=== PATIENT | female | born 1970 | race Caucasian/White ===

== ENCOUNTER 2017-05-20 18:50 | Inpatient (IN) | payer BC, OTHER ==
--- NOTE | ~2017-05-20 | PN ---
Unit #: [id number] #: [id number] Patient: ANTONIO VARMA [id number] [facility] [address] [place] [address] [id number] MR#: [id number] NAME: ANTONIO VARMA ROOM: P212 Age: 46 Sex: F Admission Date: 05/20/2017 : 1970 Attending Physician: Quan Guerrero M.D. Admitting Physician: Quan Guerrero M.D. Primary Care Physician: Primary Care Physician Jayashree AVILA PROGRESS NOTES DATE 05/24/2017 DISCUSSION The patient complains of severe alcohol craving when seen today. We will go ahead and start Campral 66 mg 3 times a day in hopes of addressing this symptom. The patient remains uncertain as to whether she wants to pursue residential treatment or an outpatient treatment program. Discharge should take place tomorrow. Dictated by... Quan Guerrero M.D. CB/bztheo TD: 05/24/2017 14:08 JOB #: [id number] [facility] PROGRESS NOTES Page 1 of 1 X Quan Guerrero MD PROGRESS NOTE
--- NOTE | ~2017-05-20 | HP ---
Unit #: [id number] #: [id number] Patient: ANTONIO VARMA [id number] [place] [address] [id number] I MR#: [id number] NAME: ANTONIO VARMA ROOM: P212 Age: 46 Sex: F Admission Date: 05/20/2017 : 1970 Attending Physician: Quan Guerrero M.D. Admitting Physician: Quan Guerrero M.D. Primary Care Physician: Primary Care Physician No HISTORY AND PHYSICAL HISTORY OF PRESENT ILLNESS Antonio is a 46 year old admitted to [address] [place] [address] because of her continued abuse of alcohol. PAST MEDICAL HISTORY 1. Long history of alcohol abuse. 2. History of opioid abuse. 3. Obesity. PAST SURGICAL HISTORY 1. Hysterectomy. 2. Knee. 3. Laparoscopic oophorectomy. ALLERGIES No known drug allergies. SOCIAL HISTORY She does not smoke. Drinks at least a fifth of liquor on a daily basis and admits to using up to 100 mg of Lortab on a daily basis. FAMILY HISTORY Medically noncontributory. REVIEW OF SYSTEMS CONSTITUTIONAL: No fever or chills. HEENT: Denies any sore throat, ear pain or runny nose. CARDIOVASCULAR: Denies chest pain, irregular heart rhythm or palpitations. CHEST: Denies shortness of breath or cough. No hemoptysis. GASTROINTESTINAL: Denies nausea, vomiting, diarrhea or chronic constipation. ENDOCRINE: Denies history of increased thirst or urination. No recent significant weight loss or gain. GENITOURINARY: Denies dysuria, frequency, or hematuria. SKIN: Denies any rashes. HEMATOLOGIC: Denies history of increased bleeding or bruising. MUSCULOSKELETAL: Denies any hot, swollen joints. No generalized muscle pain. NEUROLOGIC: Denies problems with vision or speech. No frequent, severe headaches. No numbness, tingling or weakness in any extremities. Denies loss of bladder or bowel control. CURRENT MEDICATIONS Unit #: [id number] #: [id number] Patient: ANTONIO VARMA 1. Detox protocol. 2. Celexa 20 mg daily. PHYSICAL EXAMINATION GENERAL: Alert, obese, in no apparent distress. VITAL SIGNS: Blood pressure 166/100, heart rate 94, respirations 16, temperature 98.6. WEIGHT: 160. HEIGHT: 5 feet 4 inches. SKIN: Warm and dry without rash or lesion. HEENT: Normocephalic. TMs not viewed. Oral and nasal passages clear. Conjunctivae clear. PERRLA. EOMs intact. NECK: Supple without lymphadenopathy or thyromegaly. HEART: Regular rate and rhythm without murmur. LUNGS: Clear. ABDOMEN: Soft, nontender. : Not done. EXTREMITIES: No evidence of cyanosis, clubbing or edema. Moves all without focal deficit. NEUROLOGICAL: Grossly within normal limits. Cranial Nerves: II: Visual bardales are intact. III, IV AND : Extraocular movements are intact. Pupils are equal, round and reactive to light. V: Facial sensation is grossly normal. VII: Facial movements and expression are normal. VIII: Auditory acuity grossly intact. IX, X: Uvula is midline. Phonation is normal. XI: Patient shrugs shoulders and turns head normally. XII: Tongue protrudes in the midline. Sensory and Motor Function: Sensory and motor sensation is grossly normal. Motor: moves all extremities well. Coordination: Gait is normal. Deep Tendon Reflexes: Intact. IMPRESSION Psychiatric admission. RECOMMENDATIONS PSYCHIATRIC: Per psychiatrist. MEDICAL: See no contraindication to participate in facility's activities. MEDICAL PROGNOSIS Good. MEDICAL CONDITION Stable. Dictated by... Radha Morris PMalikaAMalika-Ligia. for Vikram Trevino/bassam TD: 05/21/2017 22:57 JOB #: [id number] Unit #: [id number] #: [id number] Patient: ANTONIO VARMA HISTORY AND PHYSICAL Page 1 of 1 X Radha Morris HISTORY AND PHYSICAL
--- NOTE | ~2017-05-20 | PN ---
Unit #: [id number] #: [id number] Patient: ANTONIO VARMA [id number] [facility] [address] [place] [address] [id number] I MR#: [id number] NAME: ANTONIO VARMA ROOM: [facility] Age: 46 Sex: F Admission Date: 05/20/2017 : 1970 Attending Physician: Quan Guerrero M.D. Admitting Physician: Quan Guerrero M.D. Primary Care Physician: Primary Care Physician Jayashree AVILA PROGRESS NOTES DATE 05/22/2017 DISCUSSION The patient is abed today and is gently but firmly confronted by this physician regarding her failure to attend an on-unit therapeutic activity. The patient is complaining of ongoing symptoms of nausea and diarrhea. I have encouraged her to avail herself of prescribed p.r.n.'s. She continues to press interest in residential chemical dependence treatment following completion of detox. Dictated by... Quan Guerrero M.D. CB/bassam TD: 05/22/2017 12:39 JOB #: [id number] [facility] PROGRESS NOTES Page 1 of 1 X Quan Guerrero MD PROGRESS NOTE
--- NOTE | ~2017-05-20 | DS ---
Unit #: [id number] #: [id number] Patient: ANTONIO VARMA [id number] [place] [address] [id number] I MR#: [id number] NAME: ANTONIO VARMA ROOM: [facility] Age: 46 Sex: F Admission Date: 05/20/2017 : 1970 Discharge Date: 05/25/2017 Attending Physician: Quan Guerrero M.D. Primary Care Physician: Primary Care Physician No DISCHARGE SUMMARY REASON FOR ADMISSION The patient is a 46-year-old white female, admitted with depressed mood, suicidal ideation, and increasing alcohol use. HOSPITAL COURSE The patient was admitted to the [address] [place] [address] unit and placed on routine detoxification protocol for alcohol. Suicide precautions were ordered and the patient was begun on Celexa 20 mg at 6:00 p.m. and trazodone 50 mg at h.s. p.r.n. insomnia was eventually added as well as Campral 666 mg t.i.d. to address alcohol craving. The patient did express some initial interest in residential chemical dependency treatment, but by the time of discharge, had stated that she wished only to pursue outpatient followup in her home town of [place]. As per her request, discharge was ordered on that date. FINAL DIAGNOSES Alcohol use disorder and dysthymic disorder. DISPOSITION ON DISCHARGE The patient is discharged on the following medications: Campral 333 mg two tablets t.i.d. for alcohol craving, Celexa 20 mg daily for depression, and trazodone 50 mg at h.s. p.r.n. insomnia. DISCHARGE INSTRUCTIONS No dietary or physical restrictions were placed upon the patient at the time of discharge. FOLLOWUP Followup will take place through the auspices of community mental health resources in the [place], [place] area. PROGNOSIS The patient's prognosis is considered fair. Dictated by... Quan Guerrero M.D. CB/lesvia TD: 05/25/2017 16:02 JOB #: [id number] Unit #: [id number] #: [id number] Patient: ANTONIO VARMA DISCHARGE SUMMARY Page 1 of 1 X Quan Guerrero MD DISCHARGE SUMMARY
--- NOTE | ~2017-05-20 | PN ---
Unit #: [id number] #: [id number] Patient: ANTONIO VARMA [id number] [facility] [address] [place] [address] [id number] I MR#: [id number] NAME: ANTONIO VARMA ROOM: [facility] Age: 46 Sex: F Admission Date: 05/20/2017 : 1970 Attending Physician: Quan Guerrero M.D. Admitting Physician: Quan Guerrero M.D. Primary Care Physician: Primary Care Physician Jayashree AVILA PROGRESS NOTES DATE 05/23/2017 DISCUSSION The patient complains of some ongoing poor sleep. I will add trazodone 50 mg at h.s. in hopes of addressing this symptom. The patient's detox continues uneventfully and she continues to endorse interest in residential chemical dependence treatment upon discharge. Dictated by... Quan Guerrero M.D. CB/umberto TD: 05/24/2017 02:30 JOB #: [id number] [facility] PROGRESS NOTES Page 1 of 1 X Quan Guerrero MD PROGRESS NOTE
--- NOTE | ~2017-05-20 | PA ---
Unit #: [id number] #: [id number] Patient: ANTONIO VARMA [id number] [place] [address] [id number] I MR#: [id number] NAME: ANTONIO VARMA ROOM: [facility] Age: 46 Sex: F Admission Date: 05/20/2017 : 1970 Date of Assessment: 05/21/2017 Attending Physician: Quan Guerrero M.D. Admitting Physician: Quan Guerrero M.D. Primary Care Physician: Primary Care Physician No PSYCHIATRIC ASSESSMENT IDENTIFYING INFORMATION The patient is a 46-year-old white female admitted with increasing abuse of alcohol and "pain pills." INFORMANT(S) Patient. RELIABILITY Good. CHIEF COMPLAINT "I hit rock bottom." HISTORY OF PRESENT ILLNESS The patient is a 46-year-old white female admitted after she had presented this facility reporting she had "rock bottom." Patient reports increasing alcohol use as well as abuse of methamphetamine and illicitly obtained pain medication. The patient reports that she had recently walked off of her job secondary to ongoing substance use. The patient was reporting positive suicidal ideation with plan to ingest a large amount of methamphetamine. The patient is currently on no prescribed psychotropic medications. She does complain of poor sleep and loss of appetite as well as depressed mood and hopelessness. She denies prior suicide attempts or gestures but is continuing to report positive suicidal ideation when seen today. PAST PSYCHIATRIC HISTORY As above. FAMILY HISTORY Noncontributory. SOCIAL HISTORY The patient lives with her ex-. She recently quit her job at a local [employer]. She reports substance use as noted previously and is a smoker. MEDICAL HISTORY Noncontributory. MEDICATION HISTORY None. Unit #: [id number] #: [id number] Patient: ANTONIO VARMA ALLERGIES None. MENTAL STATUS EXAM At this time, reveals the patient to be a slightly obese white female appearing stated age. She is in no apparent physical distress at time of examination. She is awake, alert and oriented in all spheres. Her mood is dysphoric. Her affect blunted. Speech is generally relevant and coherent. There are no gross deficits in memory or cognition noted. Intelligence is judged to be in the average range based on fund of knowledge. The patient is cooperative throughout the interview. She is currently endorsing positive suicidal ideation. She denies homicidal ideation. She denies any psychotic symptoms. Her judgement and insight intact. ASSETS AND LIABILITIES Patient's assets, motivation for change. Liabilities, lack of resources. ADMITTING DIAGNOSES 1. Opioid use disorder. 2. Alcohol use disorder. 3. Methamphetamine use disorder. 4. Dysthymic disorder. PSYCHIATRIC PLAN/TREATMENT GOALS The patient remains hospitalized for safety and stabilization. A trial of Celexa 20 mg daily will be added to address the patient's complaints of depressive symptoms and routine detoxification protocols are in place. I will ask the patient's neonatal social worker to see her regarding referral for residential chemical dependence treatment. ESTIMATED LENGTH OF STAY Three to five days. Dictated by... Quan Guerrero M.D. JR/bassam TD: 05/21/2017 20:00 JOB #: [id number] PSYCHIATRIC ASSESSMENT Page 1 of 1 X Quan Guerrero MD X PSYCHIATRIC ASSESSMENT
[2017-05-21 09:50] LABS: BASOPHIL# 0.1 X10e3 (0-0.3); BASOPHIL% 0.8 % (0-2.5); EOSINOPHIL# 0.1 X10e3 (0-0.7); EOSINOPHIL% 1.2 % (0.0-7.0); HEMATOCRIT 38.2 % (35.0-45.0); HEMOGLOBIN 12.5 gm/dL (12.0-16.0); LYMPHOCYTE# 5.7 X10e3 (1.0-3.5); LYMPHOCYTE% 67.1 % (17.0-45.0); MEAN CELL VOLUME 99.7 FL (83-96); MEAN CORPUSCULAR HEMOGLOBIN 32.6 PG (28-34); MEAN CORPUSCULAR HGB CONC 32.7 g/dL (30-36); MEAN PLATELET VOLUME 7.9 FL (6.5-11.5); MONOCYTE# 0.3 X10e3 (0-1.0); MONOCYTE% 3.7 % (3.0-12.0); NEUTROPHIL# 2.3 X10e3 (1.5-7.1); NEUTROPHIL% 27.2 % (40-75); PLATELET COUNT 113 X10e3 (140-420); RED BLOOD COUNT 3.83 X10e (3.90-5.30); RED CELL DISTRIBUTION WIDTH 14.7 % (11.0-15.5); WHITE BLOOD COUNT 8.5 X10e3 (4.0-10.5)
[2017-05-21 09:53] LABS: ALBUMIN SERUM 3.6 g/dL (3.5-5.0); BILIRUBIN,TOTAL 0.9 mg/dL (0.2-2.0); BUN/CREATININE RATIO 11.66; CALCIUM SERUM 7.8 mg/dL (8.4-10.2); CREATININE SERUM 0.6 mg/dL (0.6-1.4); DIFF IND YES; GLOM FILT RATE Estimated 109.3 mL/min (>60); POTASSIUM 3.3 mmol/L (3.5-5.1); PROTEIN TOTAL SERUM 5.8 g/dL (6.0-8.3)
[2017-05-21 10:51] LABS: PLATELET ESTIMATE DECREASED (NORMAL)
[2017-05-21 10:52] LABS: ANISOCYTOSIS SL; STOMATOCYTE PRESENT
[2017-05-24 09:54] LABS: URINE APPEARANCE CLEAR; URINE BILIRUBIN NEG (NEG); URINE BLOOD NEG (NEG); URINE COLOR DK YELLOW; URINE GLUCOSE NEG (NEG); URINE KETONE NEG (NEG); URINE LEUKOCYTE ESTERASE NEG (NEG); URINE NITRATE NEG (NEG); URINE PROTEIN NEG (NEG); URINE SPECIFIC GRAVITY 1.013 (1.003-1.035); URINE UROBILINOGEN 0.2 MG/DL (NEG)
[2017-05-24 10:05] LABS: AMPHETAMINE NEG (NEG); BARBITURATES NEG (NEG); BENZODIAZEPINES POS (NEG); COCAINE NEG (NEG); MARIJUANA NEG (NEG); OPIATES NEG (NEG); TRICYCLIC ANTIDEPRESSANTS NEG (NEG); U METHADONE NEG (NEG)
== END 2017-05-25 15:40 | disposition home or self-care (01) | DRG 897 ==
LOC: P2S 22:16
PROVIDERS: Specialist
PROC: HZ2ZZZZ Detoxification Services for Substance Abuse Treatment (ICD-10-PCS; principal; 2017-05-20)
DX: F11.10 Opioid abuse, uncomplicated (principal); R45.851 Suicidal ideations; F10.10 Alcohol abuse, uncomplicated; F15.10 Other stimulant abuse, uncomplicated; E66.9 Obesity, unspecified; F34.1 Dysthymic disorder
CPT/HCPCS: 80053; 80307; 81003; 85025; 86592

== ENCOUNTER 2017-06-07 05:00 | Inpatient (IN) | payer BC, OTHER ==
[~2017-06-07] VITALS: Ht 162.6 cm; Wt 72.6 kg
--- NOTE | ~2017-06-07 | DS ---
Unit #: [id number] #: [id number] Patient: ANTONIO VARMA [id number] [facility] [address] [place] [address] [id number] I MR#: [id number] NAME: ANTONIO VARMA ROOM: 73 Age: 46 Sex: F Admission Date: 06/08/2017 : 1970 Discharge Date: 06/10/2017 Attending Physician: Quan Guerrero M.D. Primary Care Physician: Generic Doctor Not In System DISCHARGE SUMMARY REASON FOR ADMISSION The patient is a 46-year-old white female, admitted with the recent relapse of alcohol use. HOSPITAL COURSE The patient was admitted to the [facility] unit and placed on routine detoxification protocol for alcohol. She was continued on previously prescribed Celexa, Desyrel, and Campral. Her stay in the hospital was brief and uneventful and she was also begun on ReVia in anticipation of possible initiation of Naltrexone. Discharge was ordered per the patient's request to take place on the morning of 06/11. DISCHARGE DIAGNOSES Aragon I Alcohol use disorder. Dysthymic disorder. Aragon II Aragon III Aragon IV Aragon V DISPOSITION ON DISCHARGE The patient is discharged on the following medications: 1. ReVia 50 mg at bedtime for alcohol craving 2. Desyrel 100 mg at h.s. p.r.n. insomnia 3. Celexa 20 mg daily for depression 4. Campral 666 mg three times daily for alcohol craving CONDITION AT DISCHARGE PROGNOSIS The prognosis is considered fair. DIET AND ACTIVITY No dietary or physical restrictions were placed on the patient at the time of discharge. Follow up will take place through the auspices of [facility]. Dictated by... Unit #: [id number] #: [id number] Patient: ANTONIO VARMA Quan Guerrero M.D. CB/aayush TD: 06/11/2017 05:03 JOB #: [id number] DISCHARGE SUMMARY Page 1 of 1 X Quan Guerrero MD DISCHARGE SUMMARY
--- NOTE | ~2017-06-07 | PN ---
Unit #: [id number] #: [id number] Patient: ANTONIO VARMA [id number] [facility] [address] [place] [address] [id number] I MR#: [id number] NAME: ANTONIO VARMA ROOM: [facility] Age: 46 Sex: F Admission Date: 06/08/2017 : 1970 Attending Physician: Quan Guerrero M.D. Admitting Physician: Quan Guerrero M.D. Primary Care Physician: Mohini Doctor Not In System [facility] PROGRESS NOTES DATE 06/09/2017 DISCUSSION The patient is abed resting comfortable today. She continues to exhibit significant symptoms of alcohol withdrawal with CIWA scores in the 9 to 10 range in spite of aggressive pharmacotherapy. Dictated by... Quan Guerrero M.D. CB/umberto TD: 06/09/2017 23:15 JOB #: [id number] [facility] PROGRESS NOTES Page 1 of 1 X Quan Guerrero MD X PROGRESS NOTE
--- NOTE | ~2017-06-07 | PA ---
Unit #: [id number] #: [id number] Patient: ANTONIO VARMA [id number] [facility] [address] [place] [address] [id number] I MR#: [id number] NAME: ANTONIO VARMA ROOM: P173 Age: 46 Sex: F Admission Date: 06/08/2017 : 1970 Date of Assessment: 06/08/2017 Attending Physician: Quan Guerrero M.D. Admitting Physician: Quan Guerrero M.D. Primary Care Physician: Generic Doctor Not In System PSYCHIATRIC ASSESSMENT IDENTIFYING INFORMATION The patient is a 46-year-old white female admitted to the [facility] Unit with a recent relapse of alcohol use. CHIEF COMPLAINT "I relapsed." INFORMANT Patient, reliability is good. HISTORY OF PRESENT ILLNESS The patient is a 46-year-old white female admitted in transfer from [facility]. She presented to that facility with blood alcohol of 0.380 and reportedly had taken some Lortab. The patient reported that she relapsed over the weekend after being criticized by her mother. She has been drinking large amounts of vodka on a daily basis per her report but does not quantify. She also reports occasional use of opioids. The patient was last hospitalized at this facility earlier this month and was discharged on 05/25/2017. She claims she has been compliant with her current medications including Campral, trazodone, and Celexa but states that she "continues to crave alcohol." She continues to endorse positive helplessness and suicidal ideation when seen today. For more complete history of present illness, please refer to previously dictated notes. PAST PSYCHIATRIC HISTORY Reviewed, no changes. PAST MEDICAL HISTORY Reviewed, no changes. MEDICATIONS Trazodone, Celexa, and Campral. ALLERGIES None. FAMILY HISTORY Reviewed, no changes. SOCIAL HISTORY Reviewed, no changes. Unit #: [id number] #: [id number] Patient: ANTONIO VARMA MENTAL STATUS EXAMINATION Examination at this time reveals the patient to be a slightly obese heavily tattooed white female appearing her stated age. She is in no apparent physical distress at the time of examination. She is awake, alert, and oriented in all spheres. Her mood is dysphoric, her affect constricted. Speech is generally well-coherent. There are no gross deficits in memory or cognition noted. Intelligence is judged to be in the average range based on fund of knowledge. The patient is cooperative throughout the interview. She currently endorses positive suicidal ideation. She denies homicidal ideation. She denies any psychotic symptoms. Her judgment and insight appear to be reasonably intact. ASSETS AND LIABILITIES The patient's assets: Motivation for change. Liabilities: Lack of resources. DIAGNOSTIC IMPRESSION 1. Alcohol use disorder. 2. Dysthymic disorder. TREATMENT PLAN The patient remains hospitalized for safety and stabilization. Routine detoxification protocol for alcohol will be initiated, and the patient's own medications continued. Additionally, we will begin ReVia in anticipation of administration of a Vivitrol shot. ESTIMATED LENGTH OF STAY 3 to 5 days. Dictated by... Quan Guerrero M.D. JR/ezequiel TD: 06/08/2017 14:24 JOB #: [id number] PSYCHIATRIC ASSESSMENT Page 1 of 1 X Quan Guerrero MD X PSYCHIATRIC ASSESSMENT
--- NOTE | ~2017-06-07 | HP ---
Unit #: [id number] #: [id number] Patient: ANTONIO VARMA [id number] [place] [address] [id number] MR#: [id number] NAME: ANTONIO VARMA ROOM: P173 Age: 46 Sex: F Admission Date: 06/08/2017 : 1970 Attending Physician: Quan Guerrero M.D. Admitting Physician: Quan Guerrero M.D. Primary Care Physician: Generic Doctor Not In System HISTORY AND PHYSICAL Antonio is a 46-year-old female admitted on 06/08/2017 to [facility] for detox from alcohol. She has recent admission for the same most recently on 05/20/2017. I have reviewed the history and physical from that admission and there are no changes. Dictated by... Quique Ruffin TD: 06/08/2017 21:11 JOB #: [id number] HISTORY AND PHYSICAL Page 1 of 1 X NIA WASSERMAN APRN HISTORY AND PHYSICAL
[2017-06-10 10:36] LABS: AMPHETAMINE NEG (NEG); BARBITURATES NEG (NEG); BENZODIAZEPINES POS (NEG); COCAINE NEG (NEG); MARIJUANA NEG (NEG); OPIATES NEG (NEG); TRICYCLIC ANTIDEPRESSANTS NEG (NEG); U METHADONE NEG (NEG)
== END 2017-06-11 09:15 | DRG 897 ==
LOC: P1E 06-08 12:19
PROVIDERS: Specialist
PROC: HZ2ZZZZ Detoxification Services for Substance Abuse Treatment (ICD-10-PCS; principal; 2017-06-08)
DX: F10.10 Alcohol abuse, uncomplicated (principal); F34.1 Dysthymic disorder; Y90.8 Blood alcohol level of 240 mg/100 ml or more
CPT/HCPCS: 80307

== ENCOUNTER 2017-06-07 23:44 | Emergency (ER) | payer BC, OTHER ==
[~2017-06-07] VITALS: Ht 162.6 cm; Wt 74.8 kg
[2017-06-08 01:00] LABS: ACETAMINOPHEN <10 ug/mL; ALBUMIN SERUM 4.4 g/dL (3.5-5.0); ALKALINE PHOSPHATASE 71 U/L (32-92); ALT (SGPT) 41 U/L (10-40); AST (SGOT) 38 U/L (10-42); BILIRUBIN, DIRECT <0.1 mg/dL (0.0-0.2); BILIRUBIN,INDIRECT 0.2 mg/dL (0.0-0.9); BILIRUBIN,TOTAL 0.3 mg/dL (0.2-2.0); BLOOD UREA NITROGEN 15 mg/dL (9-23); BUN/CREATININE RATIO 21.42; CALCIUM SERUM 8.6 mg/dL (8.4-10.2); CARBON DIOXIDE 25 mmol/L (22-31); CHLORIDE 103 mmol/L (100-111); CREATININE SERUM 0.7 mg/dL (0.6-1.4); GLOM FILT RATE Estimated 103.9 mL/min (>60); GLUCOSE FASTING 103 mg/dL (70-110); POTASSIUM 3.4 mmol/L (3.5-5.1); PROTEIN TOTAL SERUM 7.5 g/dL (6.0-8.3); SALICYLATE <4.0 mg/dL; SODIUM 139 mmol/L (135-145)
[2017-06-08 01:01] LABS: ALCOHOL BLOOD 386 mg/dL (0)
[2017-06-08 01:53] LABS: AMPHETAMINE NEG (NEG); BARBITURATES NEG (NEG); BENZODIAZEPINES NEG (NEG); COCAINE NEG (NEG); MARIJUANA NEG (NEG); OPIATES NEG (NEG); TRICYCLIC ANTIDEPRESSANTS NEG (NEG); U METHADONE NEG (NEG)
== END 2017-06-08 11:36 | disposition short-term general hospital (02) ==
LOC: CED 23:44
PROVIDERS: Emergency Medicine
DX: R45.851 Suicidal ideations (principal); F10.10 Alcohol abuse, uncomplicated; F11.10 Opioid abuse, uncomplicated; I10 Essential (primary) hypertension
CPT/HCPCS: 36415; 80048; 80076; 80307; 99285; G0480